=== PATIENT | male | born 1950 | race Caucasian/White ===

== ENCOUNTER → 2018-02-23 | Outpatient (CLI) | payer OTHER ==
[~2018-02-23] MED LIST: AMLODIPINE/BENAZEPRI PO; ASPIRIN325; BETIMOL15 ML OP; COLACE100 MG PO; COSOPT OCUMETER10 M1 OPHTHALMIC; LIORESAL 10 MG10 MG PO; LISINOPRIL10 MG PO; NABUMETONE 500500 M1 PO; NABUMETONE PO; NAPROSYN500 MG PO; NEURONTIN 300M300 M2 PO; NEXIUM40 MG PO; OXECTA5 MG PO; PRILOSEC40 MG PO; ROBAXIN 750 MG750 M1 PO; TIMOLOL INTRAOCULR; TRAMADOL 50 MG50 MG PO; TRAMADOL-ACETA1 EACH PO; TYLENOL325 MG PO; XARELTO10 M1 PO; ZYRTEC10 M2 PO; ZYRTEC10 MG PO; [UNRECOGNIZED DRUG - REMARK]
--- NOTE | 2018-02-24 07:04 | PAINCON ---
[address] [address] PAIN MANAGEMENT CONSULTATION Name: JUANITA RIOJAS Dimas [id number] Admission: 02/23/18 Attend Phys: Latoya Zuniga Discharge: Date of : 54 Report #: [id number] THIS REPORT FOR: //name// CC: Joshua Montaño The patient is a 67-year-old gentleman, prior seen in the pain clinic 2 years ago. The patient saw Dr. Perez Montaño for lumbar radicular pain, had 2 lumbar epidural injections with excellent improvement of pain. Somewhat lost to follow. Returns to pain clinic today noting pain has gradually begun to recur, primarily low back from about the mid flank down to the SI area. Notes his legs fall asleep. He notes this is similar to prior pain presentation 2 years ago that was well treated with epidural injection. Subjectively rates his pain 1-2 on a VAS at present. He has been taking Naprosyn, tramadol and Robaxin with some efficacy. PHYSICAL EXAMINATION: Shows a pleasant 67-year-old gentleman, a little bit hard of hearing, 5 feet 11 inches tall, 182 pounds, BMI is 25.4 kilograms per meter squared. Blood pressure 140/64, pulse 66, respirations 16. Generally, alert and oriented to person, place, and time, judged to be a reasonable historian. He does have some cervical radicular symptoms. Occasional paresthesias in the arms. Lower extremity strength is generally preserved. Rises from chair using armrest. Modestly antalgic gait. Lumbar flexion is good. He is tender from about L2 in the lumbar paravertebral muscles all the way down to the SI joint. Pain is exacerbated with rotation and sidebending. Modestly positive straight leg raise on the right. Lower extremity strength is generally preserved. We reviewed diagnostic findings including MRI of the lumbar spine dated 10/24/2014. Now approximately 3-1/2 years old. Study notes L3-L4 to have right foraminal tear with focal disk protrusion contacting the L3 nerve root, L4-L5 notes fairly significant central stenosis at 0.6 cm, L5-S1 notes left paracentral disk protrusion. Incidentally, cervical diagnostic studies noted mild degenerative changes involving several cervical disks with most prominent effacement of the thecal sac at C3-C4 and C4-C5. ASSESSMENT: Symptomatic lumbar radiculopathy by clinical exam and history, component of cervical stenosis. RECOMMENDATIONS: 1. Epidural injection under fluoroscopy today at L5-S1. 2. Continue current medication prescription from prior treating physician including Robaxin, tramadol and Naprosyn. Follow up in 1 [place] [address] PAIN MANAGEMENT CONSULTATION Name: JUANITA RIOJAS Room: [facility] Dandre#: [id number] Admission: 02/23/18 Attend Phys: Latoya Zuniga Discharge: Date of : 54 Report #: [id number] reevaluation. Thank you for allowing me to participate in the patient's care. PROCEDURE: Lumbar epidural injection under fluoroscopy. PROCEDURE NOTE: After both written and informed consent to include risk of spinal cord damage, increased pain, weakness and dural puncture, the patient was taken to the fluoroscopy suite, placed in the prone position. After sterile prep and drape, a skin wheal with lidocaine was raised. A 22-gauge epidural Tuohy needle was inserted in the midline at L5-S1 with good loss to resistance. Negative aspiration for cerebrospinal fluid or blood was noted. Then 1 mL of Omnipaque under biplanar fluoroscopy showed good spread within the epidural space. This was followed with 80 mg of triamcinolone plus 1 mL of 1.5% preservative-free Xylocaine, 0.5 mL Xylocaine was then injected to flush the needle; it was removed. The patient was monitored for an appropriate period of time and discharged in good and stable condition. <ELECTRONICALLY SIGNED> By: Ralph Montaño DO 02/24/18 0704 1334 1944Ralph Montaño DO /nt
== END | disposition home or self-care (01) ==
LOC: M.PC 04:46
DX: M54.16 Radiculopathy, lumbar region (principal); M48.061 Spinal stenosis, lumbar region without neurogenic claudication; G89.29 Other chronic pain; Z98.890 Other specified postprocedural states; Z88.8 Allergy status to other drugs, medicaments and biological substances; Z79.899 Other long term (current) drug therapy

== ENCOUNTER → 2018-03-22 | Outpatient (CLI) | payer OTHER ==
--- NOTE | 2018-04-13 16:41 | PAINCON ---
[address] [address] PAIN MANAGEMENT CONSULTATION Name: BEULAHJUANITA Dimas [id number] Admission: 03/22/18 Attend Phys: Robyn Pineda MD Discharge: Date of : 54 Report #: [id number] THIS REPORT FOR: //name// CC: Joshua Pineda DATE OF SERVICE: 04/04/2018 CHIEF COMPLAINT: Low back pain has returned. FOLLOWUP HISTORY: The patient is a 68-year-old gentleman who has been seen in the pain clinic by Dr. Ralph Montaño. The patient has undergone epidural steroid injections in the past. He returns today indicating that he is having pain and discomfort involving his low back area. This is my first visit with the patient. FOLLOWUP HISTORY: The patient is experiencing more pain and discomfort in his low back and down into his legs. He has received about a 50-70% benefit after the last epidural steroid injection. Problems with his back and neck have been problematic over the last 4 years. At this juncture, he rates his pain as a 1-2 depending on the activity that he is engaged in. Mild activity is not so much problem, but other activities can become more problematic causing it to interfere with activities of daily living. He has returned to the pain clinic for an epidural steroid injections given he has benefited from these in the past. He has had no complication from their use. Continues to take a nonsteroidal anti-inflammatory medication, naproxen as well as some muscle relaxant and tramadol b.i.d. Notes that the pain is worse when he is walking, standing, bending and lifting. It improves when he rests as well as with medications. The patient has a history of cervical radiculopathy in the past. Cervical area is not as problematic today. ALLERGIES: CODEINE. MEDICATIONS: Naprosyn b.i.d., tramadol 50 mg b.i.d., Robaxin 750 mg b.i.d., timolol ophthalmic twice, amlodipine/benazepril 5/5-10 mg daily, new prostate medication one tablet daily. The patient is unsure of the name. PAST MEDICAL HISTORY: 1. Hypertension. 2. Degenerative joint disease. 3. Osteoarthritis. 4. Chronic back pain. 5. Chronic low back pain. 6. [place] [address] PAIN MANAGEMENT CONSULTATION Name: JUANITA RIOJAS Dimas Room: [facility]#: [id number] Admission: 03/22/18 Attend Phys: Robyn Pineda MD Discharge: Date of : 54 Report #: [id number] 7. Displacement of cervical intervertebral internal disk without myelopathy. 8. Myofascial pain syndrome. 9. Muscle spasms of the cervical, thoracic and lumbar regions. 10. Chronic intractable pain. 11. Gastroesophageal reflux disease. 12. Seasonal allergies. PAST SURGICAL HISTORY: Hernia repair x 2, cataract surgery x 2, left total knee arthroplasty, and open reduction and internal fixation of left femoral fracture. SOCIAL HISTORY: The patient denies use of tobacco and IV drugs. He drinks approximately 10 alcoholic beverage. He is on the weekend 10 alcoholic beverages during the week or total of approximately 20. Retired in 2009. REVIEW OF SYSTEMS: Weight change, headaches, wears reading glasses, injury to his eye, earaches, sinus problems, occasional chest pain, chronic cough, gets up at night to urinate some sexual difficulty, change in the hair, back pain, joint pain and cold intolerance. LABORATORY DATA: No new laboratory values are available at the time of our interview. PAIN CLINIC ASSESSMENT: 1. History of osteoarthritis involving the left knee had knee replacement. 2. Height 5 feet 11 inches, weight 179 pounds, BMI is 25.0. 3. Vital signs: Blood pressure 145/78, heart rate 61, respiratory rate 16, room air saturation 97%, temperature 98.0. 4. Pain intensity score 2-3/10 depending on the activity in the low back. 5. Fall risk. The patient has not fallen in the last 3 months. 6. Blood thinner. The patient is not on a blood thinning medication. 7. Hypertension. The patient is being treated for hypertension. 8. Opioids greater than 6 weeks. The patient is not on his regular opioid contract. 8. Risk assessment tool. 8. Functional assessment tool. 9. Recreational drug use. The patient denies use of recreational drugs. 10. Alcohol. The patient states that he has decreased his use of alcoholic drugs and does not smoke and/or drink significant last 2 years. PHYSICAL EXAMINATION: GENERAL: The patient is a well-developed, well-nourished white male. Appears his stated age. He is alert and oriented x 3. Affect is appropriate. Speech is fluent. HEENT: Normocephalic, atraumatic. Extraocular muscles intact. Sclerae nonicteric. Hearing with been normal limits. Mucous membranes are moist. NECK: Without significant complaints of pain or discomfort at this point. [address] [address] PAIN MANAGEMENT CONSULTATION Name: JUANITA RIOJAS Room: [facility] Amos#: [id number] Admission: 03/22/18 Attend Phys: Robyn Pineda MD Discharge: Date of : 54 Report #: [id number] LUNGS: Lung are without rhonchi, rales or wheezes. HEART: Regular rate. ABDOMEN: Nontender. EXTREMITIES: Upper extremity muscle strength is judged to be 4+ or 5- on the left as well as on the right. The patient has pain and discomfort. He is radiating down in the left leg as well as the right leg. Positive straight leg raise on the left and increased pain with dorsiflexion of his right foot as well. ASSESSMENT: 1. Symptomatic lumbar radiculopathy. 2. History of symptomatic cervical radiculopathy. 3. Cervical spondylosis without myelopathy. 4. History of occipital neuralgia. 4. Myofascial pain. RECOMMENDATIONS: We discussed treatment options with the patient. Risks and benefits of an epidural steroid injection in the low back area were reviewed. The patient has had this procedure in the past and gleaned up to 70% improvement in his pain. He would like to proceed again. Possible complications which but are not limited to infection, increased muscle soreness, headaches, worsening of pain, increased pain, bleeding, spinal headache were discussed. The patient elects to proceed. PROCEDURE NOTE: The patient was taken to the procedure area. He was assisted in getting on the table. A pillow was placed under his abdomen to bolster and improve positioning. Anterior floor anterior, posterior as well as lateral viewing with fluoroscopy was used. His back was sterilely prepped with a Betadine solution. 0.25% bupivacaine was injected at the L5-S1 area and he is using a midline approach. A 17-gauge Tuohy with loss of resistance technique was used to gain access to the epidural space. There was no CSF, heme or paresthesia. Total of 80 mg Depo-Medrol, 40 mg triamcinolone and 2 mL of 0.25% bupivacaine was injected. A total of 7 seconds fluoroscopy time was used. The patient's pain was reduced. He was taken to the recovery room where he remained for an appropriate amount of time. He will follow up in the future as needed. He will call us if he has any concerns. We would like to thank you for letting us participate in his care. We hope he continues to improve. <ELECTRONICALLY SIGNED> By: Robyn Pineda MD 04/13/18 1641 1152 1814N. Luis Pineda MD /nt
== END | disposition home or self-care (01) ==
LOC: M.PC 04:59
DX: M54.16 Radiculopathy, lumbar region (principal); M54.12 Radiculopathy, cervical region; M47.892 Other spondylosis, cervical region; M54.81 Occipital neuralgia; M79.1 Myalgia; I10 Essential (primary) hypertension; M19.90 Unspecified osteoarthritis, unspecified site; G89.29 Other chronic pain; G44.89 Other headache syndrome; K21.9 Gastro-esophageal reflux disease without esophagitis; Z98.890 Other specified postprocedural states; Z79.899 Other long term (current) drug therapy; Z88.6 Allergy status to analgesic agent

== ENCOUNTER → 2018-12-13 | Outpatient (CLI) | payer MEDICARE, OTHER ==
--- NOTE | ~2018-12-13 | PAINCON ---
[address] [address] PAIN MANAGEMENT CONSULTATION Name: JUANITA RIOJAS Dimas Room: [facility] Dandre#: [id number] Admission: 12/13/18 Attend Phys: Robyn Pineda MD Discharge: Date of : 54 Report #: [id number] THIS REPORT FOR: //name// CC: Joshua Zhu DATE OF SERVICE: 12/13/2018 CHIEF COMPLAINT: Chronic lumbar pain. HISTORY OF PRESENT ILLNESS: The patient is a 68-year-old gentleman who has been seen in the pain clinic because of lumbar radiculopathy. He has undergone epidural steroid injection in the past. He has gleaned benefits from this. He returns today indicating that his pain is helped with use of tramadol. He has a history of spinal stenosis. He has been using tramadol to help control his pain. He states that he was only given a 1-week supply of medication ____ by his insurance company at the last visit. He feels overall that the medication is helpful. He generally takes one tablet daily. He would like to continue with this medication because it provides a significant amount of benefit. He is not taking a true opioid medication. He found that injections in the back area over time can be beneficial as well. He feels that his pain is 80-100% improved with his current medical regimen. I would like to continue the tramadol. He has returned today for a renewal of the script. ALLERGIES: CODEINE. CURRENT MEDICATIONS: Tramadol 50 mg 1 p.o. b.i.d., Naprosyn 500 mg b.i.d., methocarbamol 750 mg b.i.d., timolol ophthalmic, prostate medication dose of which he is unsure, and amlodipine. PAIN CLINIC ASSESSMENT/PQRS: 1. History of osteoarthritis involving his left knee. The patient has had a knee replacement. He has not been treated for rheumatoid arthritis. 2. Pain intensity: 09/25. 3. Height 5 feet 11 inches, weight 191 pounds, and BMI is 26.6. 4. Vital signs: Blood pressure 156/73, heart rate 67, respiratory rate 16, room air saturation 98%, and temperature 98. 5. Fall history: The patient has not fallen in the last 3 months. 6. Blood thinner: The patient is not on a blood thinning medication. 7. Hypertension: The patient is being treated for hypertension. 8. Opioid greater than 6 weeks. The patient is using tramadol, which has been quite effective in helping curtail his pain. 9. Functional assessment tool: Low for opioid use. 10. Risk assessment tool: Low for opioid use. 11. Recreational drug use: [place] [address] PAIN MANAGEMENT CONSULTATION Name: JUANITA RIOJAS Room: [facility]#: [id number] Admission: 12/13/18 Attend Phys: Robyn Pineda MD Discharge: Date of : 54 Report #: [id number] 12. Tobacco: The patient denies smoking. 13. Alcohol: The patient denies frequent use of alcoholic beverages. PHYSICAL EXAMINATION: GENERAL: The patient is a well-developed, well-nourished white male. Appears his stated age. He is alert and oriented x 3. His affect is appropriate. Speech is fluent. He is accompanied by his . HEENT: Normocephalic, atraumatic. Extraocular eye muscles intact. Sclerae are nonicteric. Mucous membranes are moist. Hearing is within normal limits. NECK: Without significant discomfort. LUNGS: Clear to auscultation without rhonchi or rales. HEART: Regular rate. ABDOMEN: Nontender. EXTREMITIES: Upper extremity muscle strength is judged to be 4-5/10 on the left side as well as on the right. The patient has pain and discomfort and his pain is radiating down to his left leg as well as a right leg. IMPRESSION: 1. Symptomatic lumbar radiculopathy. 2. History of symptomatic cervical radiculopathy. 3. Cervical spondylosis without myelopathy. 4. History of occipital neuralgia. 5. Myofascial pain. 6. Gastroesophageal reflux disease. 7. Seasonal allergies. 8. Myofascial pain syndrome. RECOMMENDATIONS: We discussed treatment options with the patient. At this juncture, he feels that his medications are working reasonably well. We have written a script for the patient. He will take tramadol 50 mg tablet 1 p.o. b.i.d./t.i.d. He feels that the medications are working reasonably well. This is a chronic condition. His insurance company should continue to pay for this medication. This medication is a stepping stone when one uses opioids. This is at the bottom end of the ladder. Other options would be for the patient to use more of the stronger opioid medication starting with hydrocodone and increasing dosages. We would recommend that the insurance company review his chart and provide him with tramadol, which appears to be quite effective medication for him, provide him 80-100% improvement in his pain without other interventions at this juncture. We would like to thank you for letting us participate in his care. A script for [address] [place] [address] PAIN MANAGEMENT CONSULTATION Name: JUANITA RIOJAS Room: [facility]#: [id number] Admission: 12/13/18 Attend Phys: Robyn Pineda MD Discharge: Date of : 54 Report #: [id number] his medications has been written. The patient does take these medications chronically and should be excluded from the 1 week rule of opioid medications. By: [id number]. Luis Pineda MD /nt
== END ==
LOC: M.PC 12-08 12:10
DX: G89.29 Other chronic pain (principal); M47.22 Other spondylosis with radiculopathy, cervical region; K21.9 Gastro-esophageal reflux disease without esophagitis; M79.18 Myalgia, other site; I10 Essential (primary) hypertension; Z88.5 Allergy status to narcotic agent; Z79.899 Other long term (current) drug therapy; Z96.652 Presence of left artificial knee joint; Z79.891 Long term (current) use of opiate analgesic

== ENCOUNTER → 2019-02-28 | Outpatient (CLI) | payer MEDICARE, OTHER ==
--- NOTE | ~2019-02-28 | PAINCON ---
[facility] [address] [place] [address] PAIN MANAGEMENT CONSULTATION Name: JUANITA RIOJAS Dimas [facility] [id number] Admission: 02/28/19 Attend Phys: Robyn Pineda MD Discharge: Date of : 54 Report #: [id number] THIS REPORT FOR: //name// CC: Joshua Pineda DATE OF SERVICE: 02/28/2019 CHIEF COMPLAINT: "Return of low back pain down into my leg." FOLLOWUP HISTORY: The patient is a 69-year-old gentleman who has been seen in the pain clinic because of lumbar radiculopathy. He has noticed a return of back pain. It involves his legs bilaterally. Has had some problem with his arms, elbows. Arms and elbows have been affected as well. He has had some pain for a number of years. Notes that his pain depends on what activity he is engaged in. Feels that the tramadol and methocarbamol are helpful. Notes that the pain can be problematic with walking, standing, lifting, and bending. It involves the lower back area with pain radiating down to his left leg. An epidural steroid injection a number of months ago helped the pain significantly. It decreased by 80%. He has returned today with a hope to undergo an epidural injection. He has had no change in bowel or bladder function. ALLERGIES: CODEINE. CURRENT MEDICATIONS: Tramadol 50 mg b.i.d., Naprosyn 500 mg b.i.d., methocarbamol 750 mg b.i.d., timolol ophthalmic, prostate medication dose unsure, and amlodipine. PAIN CLINIC ASSESSMENT AND PQRS: 1. History of osteoarthritis involving his left knee. The patient has had a knee replacement. He is not being treated for rheumatoid arthritis. 2. Height 5 feet 11 inches, weight 184 pounds, BMI is 25.7. 3. Blood pressure 143/92, heart rate 70, respiratory rate 18, room air saturation is 95, temperature 98.2. 4. Fall history: The patient has not fallen in the last 3 months. 5. Blood thinner. The patient is not on a blood thinning medication. 6. Hypertension. The patient is being treated for hypertension. 7. Opioids greater than 6 weeks. The patient is being treated with tramadol, which has been quite effective. 8. Functional assessment tool, low for opioid use. 9. Risk assessment tool, low for opioid. 10. Recreational drug use. The patient denies use of recreational drugs. 11. Tobacco: The patient denies use of tobacco. 12. Alcohol: The patient denies frequent use of alcoholic beverages. PHYSICAL EXAMINATION: [place] [address] PAIN MANAGEMENT CONSULTATION Name: NEILAUNDREAJUANITA Room: [facility]#: [id number] Admission: 02/28/19 Attend Phys: Robyn Pineda MD Discharge: Date of : 54 Report #: [id number] GENERAL: The patient is a well-developed, well-nourished white male. Appears his stated age of 69. He is alert and oriented x 3. His affect is appropriate. Speech is fluent. HEENT: Normocephalic, atraumatic. Extraocular eye muscles intact. NECK: Without significant discomfort. LUNGS: Clear to auscultation without rhonchi or rales. HEART: Regular rate. ABDOMEN: Nontender. MUSCULOSKELETAL: The patient without significant scoliosis, kyphosis, or lordosis. Upper extremity muscle strength is judged to be ____, The patient has pain and discomfort that is radiating down into his left leg involving his foot in the L5-S1 dermatomal distribution. IMPRESSION: 1. Symptomatic lumbar radiculopathy, L4-L5 and L5-S1 dermatomal distribution. 2. History of symptomatic cervical radiculopathy. 3. Cervical spondylosis without myelopathy. 4. History of occipital neuralgia. 5. Myofascial pain. 6. Gastroesophageal reflux. 7. Seasonal allergies. 8. Myofascial pain syndrome. RECOMMENDATIONS: We discussed treatment options with the patient. Risks and benefits of an epidural steroid injection were discussed. The patient has had epidural steroid injection and gleaned significant improvement from these. At this point, he would like to proceed with another epidural injection. The risk and benefits of the procedure were again discussed, but are not limited to infection, worsening pain, no improvement in pain, nerve damage, spinal headache, increased muscle soreness and the patient elects to proceed. PROCEDURE NOTE: The patient was taken to the procedure area. He was then assisted in getting on the examination table. He was seen and helped in the correct positioning. Fluoroscopy using anterior, posterior as well as lateral viewing were implemented. A 25-gauge needle was then advanced at the L5-S1 area with a right paramedian approach. There was numbness in this area after it was injected. A 17-gauge Tuohy with loss of resistance technique was used to gain access to the epidural space. There was no CSF, heme or paresthesia. A total of 80 mg Depo-Medrol, 40 mg triamcinolone and 2 mL of 0.25% bupivacaine was injected. The patient tolerated the procedure well. There were no complications. He remained in the pain clinic for an appropriate amount of time. His pain decreased to 10 at the time of discharge. He will follow up in the future as needed. [facility] [address] [place] [address] PAIN MANAGEMENT CONSULTATION Name: NEILAUNDREAJUANITA Room: [facility]#: [id number] Admission: 02/28/19 Attend Phys: Robyn Pineda MD Discharge: Date of : 54 Report #: [id number] We would like to thank you for letting us participate in his care. We hope he continues to improve. By: [id number]. Luis Pineda MD /nt
== END | disposition home or self-care (01) ==
LOC: M.PC 05:06
DX: M54.16 Radiculopathy, lumbar region (principal); G89.29 Other chronic pain; M54.12 Radiculopathy, cervical region; I10 Essential (primary) hypertension; M79.18 Myalgia, other site; M17.12 Unilateral primary osteoarthritis, left knee; K21.9 Gastro-esophageal reflux disease without esophagitis; Z98.890 Other specified postprocedural states; Z79.899 Other long term (current) drug therapy; Z88.6 Allergy status to analgesic agent; Z96.652 Presence of left artificial knee joint

== ENCOUNTER 2019-03-12 00:03 | Emergency (ER) | payer MEDICARE, OTHER ==
[~2019-03-12] VITALS: Ht 180.3 cm; Wt 83.9 kg
[2019-03-12] MEDS ORDERED: METHOCARBAMOL500 M2 PO (00:18)
[2019-03-12] MEDS ORDERED: PROTONIX40 M1 PO (00:19)
[2019-03-12] MEDS ORDERED: ZYRTEC10 M2 PO (00:19)
[2019-03-12] MEDS ORDERED: FLOMAX0.4 MG PO (00:20)
[2019-03-12 02:38] VITALS: BP 122/67
--- NOTE | 2019-03-13 16:57 | EKG ---
[place] [address] ELECTROCARDIOGRAM REPORT Name: PAULINA RIOJASJARRED BERRY Room: [facility]#: [id number] Admission: 03/12/19 Attend Phys: Discharge: 03/12/19 Date of : 54 Report #: [id number] THIS REPORT FOR: //name// [facility] ED Test Date: 2019-03-12 Test Time: 01:40:58 Pat Name: JUANITA RIOJAS Department: Room: Gender: M Medicaid Collection Specialist: ALLIE : 1950 Requested By: Hafsa Gómez Order Number: [id number] MD: Enrique Graf Measurements Intervals [place] Rate: 60 P: 46 KS: 209 QRS: -38 QRSD: 97 T: 28 QT: 410 QTc: 410 Interpretive Statements Sinus rhythm Left axis deviation RSR' in V1 or V2, right VCD or RVH Compared to ECG 04/25/2012 11:32:54 Right ventricular hypertrophy now present RSR' in V1 or V2 now present Sinus bradycardia no longer present Electronically Signed On 03-13-2019 16:57:30 CDT by Enrique Graf [email or web address] <ELECTRONICALLY SIGNED> By: Enrique Graf MD, FACC 03/13/19 1657 0140 0140 Enrique Graf MD, [facility] /EPI
== END 2019-03-12 02:38 | disposition home or self-care (01) ==
LOC: M.ERS 00:03
DX: M79.2 Neuralgia and neuritis, unspecified (principal); I10 Essential (primary) hypertension; K21.9 Gastro-esophageal reflux disease without esophagitis; Z90.49 Acquired absence of other specified parts of digestive tract; Z88.6 Allergy status to analgesic agent

== ENCOUNTER → 2019-04-13 | Outpatient (CLI) | payer MEDICARE, OTHER ==
[~2019-04-13] MED LIST changes: +FLOMAX0.4 MG PO; +METHOCARBAMOL500 M2 PO; +NORTRIPTYLINE H10 M1 PO; +PROTONIX40 M1 PO
--- NOTE | ~2019-04-13 | PAINCON ---
[address] [address] PAIN MANAGEMENT CONSULTATION Name: JUANITA RIOJAS JAMAL Room: [facility] [address] Dandre#: [id number] Admission: 04/13/19 Attend Phys: Robyn Pineda MD Discharge: Date of : 54 Report #: [id number] THIS REPORT FOR: //name// CC: Joshua Pineda DATE OF SERVICE: 04/13/2019 CHIEF COMPLAINT: Low back pain. I have been moving. HISTORY: The patient is a 69-year-old gentleman who has been seen in the pain clinic in the past because of lumbar radiculopathy. He has undergone epidural steroid injection and gleaned benefits from that. He is moving at this juncture, there is lots of activity carrying things up and down stairs. He has noticed a worsening of his pain and discomfort and rates it as a 3/10. Notes that the pain is most problematic when he is active. He is moving to [place]. Because of this increase lifting, moving of furniture he would like to proceed with another epidural steroid injection, which he found beneficial. Complains of some soreness and discomfort in his arms as well as his legs have been falling asleep. ALLERGIES: CODEINE. CURRENT MEDICATIONS: Tramadol 50 mg b.i.d., Naprosyn 500 mg b.i.d., methocarbamol 750 mg b.i.d., timolol ophthalmic, prostate medication dose unknown, amlodipine. PAIN CLINIC ASSESSMENT AND PQRS: 1. History of osteoarthritis involving his left knee. The patient has had a knee replacement. He is not being treated for rheumatoid arthritis. 2. Height 5 feet 11 inches, weight 181 pounds, BMI is 25.3. 3. Vital Signs: Blood pressure 128/68, heart rate 70, respiratory rate 16, room air saturation 96%, temperature 98.3. 4. Pain intensity 3/10 while sitting. 5. Fall history: The patient has not fallen in the last 3 months. 6. Blood thinner. The patient is not on a blood thinning medication. 7. Hypertension. The patient is being treated for hypertension. 8. Opioids greater than 6 weeks. The patient receives medications from his primary and has been using tramadol. 9. Functional assessment tool, low for opioid use. 10. Risk assessment tool, low for opioids. 11. Recreational drug use. The patient denies use of recreational drugs. 12. Tobacco: The patient denies use of tobacco. 13. Alcohol. The patient denies frequent use of alcoholic beverages. PHYSICAL EXAMINATION: [address] [place] [address] PAIN MANAGEMENT CONSULTATION Name: JUANITA RIOJAS JAMAL Room: [facility]#: [id number] Admission: 04/13/19 Attend Phys: Robyn Pineda MD Discharge: Date of : 54 Report #: [id number] GENERAL: The patient is a well-developed, well-nourished white male. Appears his stated age of 69. He is alert and oriented x 3. His affect is appropriate. Speech is fluent. HEENT: Normocephalic, atraumatic. Extraocular eye muscles intact. Sclerae nonicteric. Mucous membranes are moist. NECK: Without adenopathy or JVD. LUNGS: Generally clear to auscultation without rhonchi or rales. HEART: Regular rate. ABDOMEN: Nontender. Bowel sounds present. MUSCULOSKELETAL: Without significant scoliosis, kyphosis or lordosis. Upper extremity muscle strength is judged to be 5-/5 for the major muscle groups in the upper extremity. The patient has pain and discomfort that is radiating down to his left leg involving his foot in the L4-L5 dermatomal distribution. It was in the L5-S1 dermatomal distribution in the past. IMPRESSION: 1. Symptomatic lumbar radiculopathy, L4-L5. 2. History of symptomatic cervical radiculopathy. 3. Cervical spondylosis without myelopathy. 4. History of occipital neuralgia. 5. Myofascial pain. 5. Gastroesophageal reflux. 6. Seasonal allergies. 7. Myofascial pain syndrome. RECOMMENDATIONS: We discussed treatment options with the patient. Risks and benefits of an epidural steroid injection was discussed. Possible complications which could include but are not limited to infection, worsening pain, no improvement in pain, nerve damage with paralysis and the patient elects to proceed. PROCEDURE NOTE: The patient was placed in the prone position. He was then positioned with a pillow under the abdomen to bolster the injection. position. His back was sterilely prepped with a Betadine solution and allowed to dry. A 25-gauge needle was then advanced in the midline area of the L4-L5 dermatomal distribution after it was anesthetized, a 17-gauge Tuohy with loss of resistance technique at the L4-L5 area was then advanced to the epidural space. There was no CSF, heme or paresthesia. Total of 80 mg Depo-Medrol, 40 mg triamcinolone and 2 mL of 0.25% bupivacaine was injected. The patient tolerated the procedure well. 15 seconds of fluoroscopy time was used. The patient will follow up in the future as needed. We would like to thank you for letting us participate in his care[place] [address] PAIN MANAGEMENT CONSULTATION Name: JUANITA RIOJAS Room: [facility]#: [id number] Admission: 04/13/19 Attend Phys: Robyn Pineda MD Discharge: Date of : 54 Report #: [id number] continues to improve. Hopefully, he is able to get his household moved with less discomfort. By: [id number]. Luis Pineda MD /PMT
== END | disposition home or self-care (01) ==
LOC: M.PC 05:20
DX: M54.16 Radiculopathy, lumbar region (principal); G89.29 Other chronic pain; M54.12 Radiculopathy, cervical region; M47.892 Other spondylosis, cervical region; M79.18 Myalgia, other site; I10 Essential (primary) hypertension; K21.9 Gastro-esophageal reflux disease without esophagitis; Z98.890 Other specified postprocedural states; Z96.652 Presence of left artificial knee joint; Z88.8 Allergy status to other drugs, medicaments and biological substances; Z79.899 Other long term (current) drug therapy

== ENCOUNTER → 2020-04-11 | Outpatient (CLI) | payer MEDICARE, OTHER ==
--- NOTE | 2020-04-18 15:10 | PAINCON ---
[address] [address] PAIN MANAGEMENT CONSULTATION Name: JUANITA RIOJAS Room: [facility].Mame.#: [id number] Admission: 04/11/20 Attend Phys: Robyn Pineda MD Discharge: Date of : 54 Report #: [id number] THIS REPORT FOR: //name// cc: Joshua Larson Ahmad W. DO ~ THIS REPORT FOR: //name// CC: Joshua Pineda DATE OF SERVICE: 04/11/2020 CHIEF COMPLAINT: Return of low back and leg pain. HISTORY: The patient is a 70-year-old gentleman who has been seen in the pain clinic in the past because of lumbar radiculopathy. He has undergone epidural steroid injections. At those times, he has noticed that his pain improved. He returns today because of worsening of pain and discomfort. He rates it as 4-5/10. Pain is quite problematic when he gets up in the morning. It also can worsen as the day goes along. He notes that pain radiates down his back and down into the posterior portion of his leg with numbness and tingling. Bending, lifting and activities exacerbate the discomfort. He would like to proceed with another epidural steroid injection. He has had no problems with previous injections. ALLERGIES: CODEINE. CURRENT MEDICATIONS: Zyrtec 10 mg, methocarbamol 500 mg b.i.d., nortriptyline 10 mg, Protonix 40 mg, Flomax 0.4 mg, timolol ophthalmic drops, tramadol 50 mg 1 p.o. t.i.d., amlodipine/benazepril 5-10 mg daily. PAIN CLINIC ASSESSMENT AND PQRS: 1. The patient has a history of osteoarthritis involving his left knee. He has had a knee replacement. He is not being treated for rheumatoid arthritis. 2. Height 5 feet 11 inches, weight is 183 pounds, BMI 25. 3. Vital Signs: Blood pressure 140/82, heart rate 73, respiratory rate 16, room air saturation is 96%, temperature 97.7. 4. Pain intensity 4-5/10. 5. Fall history: The patient has not fallen in the last 3 months. 6. Blood thinner. The patient is not on a blood thinning medication. 7. Hypertension. The patient is being treated for hypertension. 8. Opioids greater than 6 weeks. The patient received medication from his primary. 9. Functional assessment tool, low for opioid use. 10. Risk assessment tool, low for opioid use. 11. Recreational drug [place] [address] PAIN MANAGEMENT CONSULTATION Name: JUANITA RIOJAS JAMAL [id number] Admission: 04/11/20 Attend Phys: Robyn Pineda MD Discharge: Date of : 54 Report #: [id number] 12. Tobacco: The patient denies use of tobacco. 13. Alcohol. The patient denies frequent use of alcoholic beverages. PHYSICAL EXAMINATION: GENERAL: The patient is a well-developed, well-nourished white male. Appears his stated age. He is alert and oriented x 3. His affect is appropriate. Speech is fluent. HEENT: Normocephalic, atraumatic. Extraocular eye muscles intact. Sclerae nonicteric. Mucous membranes are moist. NECK: Without adenopathy or JVD. MUSCULOSKELETAL: The patient does complain of some right arm weakness. Lower extremity muscle strength judged to be 5/5 for the lower extremity. He notes pain radiating down in the L5-S1 dermatomal distribution with numbness in his leg. IMPRESSION: 1. Symptomatic lumbar radiculopathy at the L5-S1 dermatomal distribution. 2. History of symptomatic cervical radiculopathy. 3. Cervical spondylosis without myelopathy. 4. History of occipital neuralgia. 5. Myofascial pain. 6. Gastroesophageal reflux. 7. Seasonal allergies. 8. Myofascial pain syndrome. RECOMMENDATIONS: We discussed treatment options with the patient. Risks and benefits of an epidural steroid injection were discussed. They were, possibility of infection, increased muscle soreness, bleeding, nerve damage and spinal headache. We also discussed with the patient that COVID-19 is pandemic. Steroids can decrease one's immunity. Should the patient become infected, he may have a more difficult time with the virus. He agrees to proceed. PROCEDURE NOTE: The patient was taken to the procedure area. He was then assisted in getting on examination table. A pillow was placed under the abdomen to bolster and improve positioning. His back was sterilely prepped with a Betadine solution. This was allowed to dry. A 25-gauge needle was then advanced in the L5-S1. After this area had been anesthetized, a 17-gauge Tuohy with loss of resistance technique was used to gain access to the epidural space. There was no CSF, heme or paresthesia. Total of 80 mg Depo-Medrol, 40 mg triamcinolone and 2 mL of 0.25% bupivacaine was injected. The patient tolerated the procedure well. There were no complications. He remained in the pain clinic for an appropriate amount of time. Approximately 20 seconds fluoroscopy time was used. [address] [place] [address] PAIN MANAGEMENT CONSULTATION Name: NEILAUNDREAJUANITA Room: [facility]#: [id number] Admission: 04/11/20 Attend Phys: Robyn Pineda MD Discharge: Date of : 54 Report #: [id number] We would like to thank you for letting us participate in his care. We hope he continues to improve. <ELECTRONICALLY SIGNED> By: Robyn Pineda MD 04/18/20 1510 [id number]. Luis Pineda MD /nt
== END | disposition home or self-care (01) ==
LOC: M.PC 11:48
PROVIDERS: ATTEND Anesthesiology Pain Medicine
DX: M54.5 Low back pain (principal); M54.16 Radiculopathy, lumbar region; M47.812 Spondylosis without myelopathy or radiculopathy, cervical region; K21.9 Gastro-esophageal reflux disease without esophagitis; I10 Essential (primary) hypertension; Z79.899 Other long term (current) drug therapy